=== PATIENT | female | born 1975 | race Two or more races ===

== ENCOUNTER 2020-10-02 16:43 | Emergency (ER) | payer MEDICAID ==
[~2020-10-02] VITALS: Ht 149.9 cm; Wt 72.6 kg
[2020-10-02 18:00] VITALS: BP 118/74
== END 2020-10-02 18:33 | disposition home or self-care (01) ==
LOC: ER 16:43
DX: J32.9 Chronic sinusitis, unspecified (principal); Z98.51 Tubal ligation status